=== PATIENT | male | born 1990 | race African-American/Black ===

== ENCOUNTER 2019-12-03 10:01 | Inpatient (IN) | payer MEDICAID ==
[2019-12-03] VITALS (16 sets, daily range): BP systolic 130–170; BP diastolic 71–117
[~2019-12-03] VITALS: Ht 172.7 cm; Wt 77.1 kg
[~2019-12-03 10:01] MED LIST: ALBU4TAB6 PO; ASPI-1497 PO; COR3 MT; FURO20TA4 MT; INSU100V9 SQ; INSU300I3 SQ; POTA25TA8 MT
[2019-12-03] MEDS ORDERED: SODIUM CHLORIDE 0.9% 1,000 ML IV ONE ×2 (10:18→12:37)
[2019-12-03] MEDS ORDERED: KETOROLAC 30MG/ML VIAL IV ONE (10:30)
[2019-12-03] MEDS ORDERED: ONDANSETRON HCL 4MG/2ML INJ IV ONE (10:45)
[2019-12-03 11:04] LABS: BASOPHILS % 0.8 % (0.0-2.0); HEMATOCRIT. 47.7 % (42.0-52.0); LYMPHOCYTES % 11.4 % (20.0-50.0); MEAN CORPUSCULAR HEMOGLOBIN 28.8 pg (28.0-32.0); MEAN CORPUSCULAR VOLUME 91.4 fL (80.0-94.0); MEAN PLATELET VOLUME 6.9 fl (7.4-10.4); MONOCYTES % 5.6 % (2.0-8.0); NEUTROPHILS % 82.2 % (40.0-76.0); PLATELET 362 x1000/uL (130-400); RED BLOOD CELL COUNT 5.22 mill/uL (4.7-6.1); RED CELL DISTRIBUTION WIDTH 18.1 % (11.6-14.6)
[2019-12-03 11:08] LABS: BG BASE EXCESS -17.4 mmol/L (-2.0-2.0); BG CARBOXYHEMOGLOBIN 0.5 % (0.5-1.5); BG DEOXYHEMOGLOBIN 0.3 % (0.0-5.0); BG FRACTION INSPIRED OXYGEN 100; BG HCO3 ACT 9.5 mmol/L (22.0-26.0); BG METHEMOGLOBIN 0.4 % (0.0-1.5); BG OXYGEN SATURATION 99.7 % (92.0-98.5); BG OXYHEMOGLOBIN 98.8 % (94.0-97.0); BG PCO2 26.8 mmHg (35.0-45.0); BG PH 7.169 (7.350-7.450); BG PO2 337.7 mmHg (75.0-100.0); BG SAMPLE SITE RIGHT BRACHIAL; BG TOTAL HEMOGLOBIN 14.3 g/dL (12.0-18.0); BG VENT MODE MASK - NRB
[2019-12-03 11:08] LABS: CLARITY URINE CLEAR (CLEAR); COLOR URINE YELLOW (YELLOW); KETONES URINE 3+ (NEGATIVE); LEUKOCYTE ESTERASE URINE NEGATIVE (NEGATIVE); NITRITE URINE NEGATIVE (NEGATIVE); OCCULT BLOOD URINE 3+ (NEGATIVE); PH URINE 5.5 (4.5-8.0); PROTEIN URINE 2+ (NEGATIVE); SPECIFIC GRAVITY URINE 1.025 (1.005-1.030); UROBILINOGEN URINE 0.2 E.U./dL (0.2-1.0)
[2019-12-03 11:56] LABS: CHLORIDE 127 mEq/L (98-107)
[2019-12-03 12:03] LABS: BETA HYDROXYBUTYRATE 2.4 mMol/L (0.0-0.3)
[2019-12-03] MEDS ORDERED: DIPHENHYDRAMINE 50MG/ML VIAL IV PRN (12:45)
[2019-12-03] MEDS ORDERED: MORPHINE SULFATE 4 MG/ML CPJ (NOT FOR IM USE) IV ONE (12:45)
[2019-12-03] MEDS ORDERED: IPRATROPIUM/ALBUTEROL 0.5-3(2.5)MG/3ML NEB HHN PRN (12:45)
[2019-12-03] MEDS: INSULIN REGULAR (DRIP) 100 UNITS in SODIUM CHLORIDE 0.9% 99 ML IV SCH ×2 (13:28→15:10)
[2019-12-03] MEDS ORDERED: INSULIN REGULAR (DRIP) 100 UNITS in SODIUM CHLORIDE 0.9% 99 ML IV ONE (14:15)
[2019-12-03] MEDS ORDERED: DEXTROSE 50% WATER 50ML SYRINGE IV PRN ×2 (14:15)
[2019-12-03] MEDS ORDERED: INSULIN REGULAR (DRIP) 100 UNITS in SODIUM CHLORIDE 0.9% 99 ML IV SCH (14:30)
[2019-12-03] MEDS ORDERED: SODIUM CHLORIDE 0.9% 1,000 ML IV SCH (14:45)
[2019-12-03] MEDS: BLOOD SUGAR DIAGNOSTIC STRIP TEST SCH ×9 (15:09→23:11)
[2019-12-03] MEDS: ONDANSETRON HCL 4MG/2ML INJ IV PRN ×2 (16:04→21:28)
[2019-12-03] MEDS: ENOXAPARIN 40MG/0.4ML SYR SUBCUT SCH (16:05)
[2019-12-03 17:03] LABS: CHLORIDE 111 mEq/L (98-107)
[2019-12-03] MEDS ORDERED: SODIUM PHOS,M-BASIC-D-BASIC 30 MM in DEXT 5% WATER 500 ML IV ONE (18:30)
[2019-12-03] MEDS: DEXT 5%/0.9% NACL KCL 20MEQ/L 1,000 ML IV SCH ×2 (18:36→23:11)
[2019-12-03] MEDS ORDERED: SODIUM PHOS,M-BASIC-D-BASIC 30 MM in DEXT 5% WATER 500 ML IV NR (20:00)
[2019-12-03] MEDS: MORPHINE SULFATE 2 MG/ML CPJ (NOT FOR IM USE) IV PRN (21:30)
[2019-12-03 21:53] LABS: CHLORIDE 113 mEq/L (98-107)
[2019-12-03] MEDS ORDERED: CLONIDINE 0.1MG TABLET PO PRN (22:45)
[2019-12-03] MEDS: CARVEDILOL 3.125 MG TABLET PO SCH (23:33)
[2019-12-04] VITALS (31 sets, daily range): BP systolic 107–142; BP diastolic 58–98
[2019-12-04 00:57] LABS: CHLORIDE 110 mEq/L (98-107)
[2019-12-04] MEDS: BLOOD SUGAR DIAGNOSTIC STRIP TEST SCH ×13 (01:00→20:33)
[2019-12-04] MEDS: DEXT 5%/0.9% NACL KCL 20MEQ/L 1,000 ML IV SCH ×3 (03:13→09:06)
[2019-12-04] MEDS: MORPHINE SULFATE 2 MG/ML CPJ (NOT FOR IM USE) IV PRN ×4 (05:52→20:28)
[2019-12-04] MEDS: ONDANSETRON HCL 4MG/2ML INJ IV PRN ×3 (05:52→15:17)
[2019-12-04 06:17] LABS: CHLORIDE 113 mEq/L (98-107)
[2019-12-04 06:21] LABS: BASOPHILS % 0.2 % (0.0-2.0); EOSINOPHILS % 0.6 % (0.0-5.0); HEMATOCRIT. 32.7 % (42.0-52.0); LYMPHOCYTES % 21.9 % (20.0-50.0); MEAN CORPUSCULAR HEMOGLOBIN 29.2 pg (28.0-32.0); MEAN CORPUSCULAR VOLUME 87.2 fL (80.0-94.0); MEAN PLATELET VOLUME 6.1 fl (7.4-10.4); MONOCYTES % 13.6 % (2.0-8.0); NEUTROPHILS % 63.7 % (40.0-76.0); PLATELET 262 x1000/uL (130-400); RED BLOOD CELL COUNT 3.75 mill/uL (4.7-6.1); RED CELL DISTRIBUTION WIDTH 17.5 % (11.6-14.6)
[2019-12-04 06:28] LABS: LDL CHOLESTEROL 86 mg/dL (5-100)
[2019-12-04 06:29] LABS: HDL CHOLESTEROL 65 mg/dL (40-59)
[2019-12-04 08:03] LABS: CHLORIDE 115 mEq/L (98-107)
[2019-12-04] MEDS: CARVEDILOL 3.125 MG TABLET PO SCH ×2 (09:06→20:37)
[2019-12-04] MEDS: SODIUM CHLORIDE 0.45% 1,000 ML IV SCH ×2 (10:20→20:07)
[2019-12-04] MEDS ORDERED: INSULIN GLARGINE UD 100 UNITS/ML SYR SUBCUT ONE ×2 (10:30→16:00)
[2019-12-04 10:34] LABS: PHOSPHORUS 1.3 mg/dL (2.5-4.9)
[2019-12-04] MEDS: INSULIN LISPRO 100 UNITS/ML SUBCUT SCH ×3 (12:27→20:36)
[2019-12-04] MEDS ORDERED: SODIUM PHOS,M-BASIC-D-BASIC 20 MM in DEXT 5% WATER 243.3333 ML IV ONE (12:30)
[2019-12-04 12:54] LABS: CHLORIDE 109 mEq/L (98-107)
[2019-12-04] MEDS: ENOXAPARIN 40MG/0.4ML SYR SUBCUT SCH (15:00)
[2019-12-04] MEDS: INSULIN GLARGINE UD 100 UNITS/ML SYR SUBCUT SCH (22:11)
[2019-12-05] VITALS: BP 108/66
[2019-12-05 04:00] VITALS: BP 111/63
[2019-12-05] MEDS: MORPHINE SULFATE 2 MG/ML CPJ (NOT FOR IM USE) IV PRN ×3 (05:53→23:47)
[2019-12-05] MEDS: SODIUM CHLORIDE 0.45% 1,000 ML IV SCH ×2 (05:53→21:35)
[2019-12-05] MEDS: ONDANSETRON HCL 4MG/2ML INJ IV PRN (05:53)
[2019-12-05 05:58] LABS: BASOPHILS % 0.5 % (0.0-2.0); EOSINOPHILS % 1.1 % (0.0-5.0); HEMATOCRIT. 33.4 % (42.0-52.0); HEMOGLOBIN. 11.3 g/dL (14.0-18.0); LYMPHOCYTES % 40.4 % (20.0-50.0); MEAN CORPUSCULAR HEMOGLOBIN 28.9 pg (28.0-32.0); MEAN CORPUSCULAR VOLUME 85.8 fL (80.0-94.0); MEAN PLATELET VOLUME 6.2 fl (7.4-10.4); MONOCYTES % 11.4 % (2.0-8.0); NEUTROPHILS % 46.6 % (40.0-76.0); PLATELET 242 x1000/uL (130-400); RED CELL DISTRIBUTION WIDTH 16.7 % (11.6-14.6)
[2019-12-05] MEDS: BLOOD SUGAR DIAGNOSTIC STRIP TEST SCH ×4 (06:32→21:17)
[2019-12-05 06:59] LABS: CHLORIDE 105 mEq/L (98-107)
[2019-12-05] MEDS: INSULIN LISPRO 100 UNITS/ML SUBCUT SCH ×4 (07:50→21:28)
[2019-12-05 08:00] VITALS: BP 112/63
[2019-12-05] MEDS: CARVEDILOL 3.125 MG TABLET PO SCH ×2 (08:58→21:17)
[2019-12-05] MEDS: INSULIN GLARGINE UD 100 UNITS/ML SYR SUBCUT SCH ×2 (09:19→21:28)
[2019-12-05 12:00] VITALS: BP 124/70
[2019-12-05] MEDS ORDERED: POTASSIUM CHLORIDE 20MEQ TABLET SR PO NR (13:00)
[2019-12-05] MEDS ORDERED: CALCIUM CARBONATE 500MG TABLET CHEW PO NR (13:30)
[2019-12-05] MEDS ORDERED: PANTOPRAZOLE SODIUM 40 MG/VIAL IV NR (13:30)
[2019-12-05 16:00] VITALS: BP 118/77
[2019-12-05] MEDS: ENOXAPARIN 40MG/0.4ML SYR SUBCUT SCH (17:49)
[2019-12-05] MEDS: SUCRALFATE 1G TABLET PO SCH ×2 (17:50→21:16)
[2019-12-05 20:00] VITALS: BP 126/86
[2019-12-06] VITALS: BP 120/72
[2019-12-06 04:00] VITALS: BP 123/87
[2019-12-06] MEDS: BLOOD SUGAR DIAGNOSTIC STRIP TEST SCH ×3 (06:21→17:13)
[2019-12-06] MEDS: SUCRALFATE 1G TABLET PO SCH ×3 (06:21→16:58)
[2019-12-06 08:00] VITALS: BP 122/74
[2019-12-06] MEDS: SODIUM CHLORIDE 0.45% 1,000 ML IV SCH (09:03)
[2019-12-06] MEDS: CARVEDILOL 3.125 MG TABLET PO SCH (09:03)
[2019-12-06] MEDS: INSULIN LISPRO 100 UNITS/ML SUBCUT SCH ×3 (09:22→17:56)
[2019-12-06] MEDS: INSULIN GLARGINE UD 100 UNITS/ML SYR SUBCUT SCH (09:44)
[2019-12-06 12:00] VITALS: BP 125/85
[2019-12-06] MEDS ORDERED: SUCR1TAB30 PO (13:09)
[2019-12-06 16:00] VITALS: BP 118/77
[2019-12-06] MEDS: ENOXAPARIN 40MG/0.4ML SYR SUBCUT SCH (16:58)
== END 2019-12-06 19:30 | disposition home or self-care (01) | DRG 420 ==
LOC: ER 10:14 → ENRESERV 13:09 → CVICU 14:34 → 6EST 12-04 16:40
PROVIDERS: ADMIT Internal Medicine; ATTEND Internal Medicine
DX: E10.10 Type 1 diabetes mellitus with ketoacidosis without coma (principal); I11.0 Hypertensive heart disease with heart failure; E87.5 Hyperkalemia; I50.9 Heart failure, unspecified; E87.1 Hypo-osmolality and hyponatremia; J45.909 Unspecified asthma, uncomplicated; Z79.84 Long term (current) use of oral hypoglycemic drugs; Z79.4 Long term (current) use of insulin; Z79.899 Other long term (current) drug therapy; Z79.82 Long term (current) use of aspirin
CPT/HCPCS: 36415; 36600; 71045; 80048; 80053; 80061; 81003; 82010; 82375; 82805; 82962; 83735; 84100; 84484; 85025; 93005; 93970; 99291; C9113; J1650; J1815; J1885; J2270; J2405; J3490; J7030; J7050; J7060